=== PATIENT | male | born 1950 | race Two or more races ===

== ENCOUNTER 2020-12-28 14:25 | Emergency (ER) | payer OTHER ==
[~2020-12-28] VITALS: Ht 182.9 cm; Wt 90.7 kg
[2020-12-28] MEDS ORDERED: TOPROL XL200 MG (14:56)
[2020-12-28] MEDS ORDERED: VASOTEC10 MG (14:56)
== END 2020-12-28 18:05 | disposition home or self-care (01) ==
LOC: ER 14:25
DX: R33.8 Other retention of urine (principal); R31.0 Gross hematuria